=== PATIENT | female | born 1990 | race Two or more races ===

== ENCOUNTER 2017-05-06 12:08 | Emergency (ER) | payer OTHER ==
[2017-05-06 12:12] VITALS: BMI 19.5
--- NOTE | 2017-05-06 13:12 | PDOC ---
History of Present Illness - General Chief Complaint: Vaginal Bleeding Stated Complaint: VAGINAL BLEEDING Time Seen by Provider: 05/06/17 12:58 History Source: Patient Exam Limitations: No Limitations - History of Present Illness Initial Comments: CHIEF COMPLAINT: 26 y/o afebrile female, , approximately 7 week female with LMP 03/16/17 c/o vaginal bleeding and lower abdominal pain x 5 days. HISTORY OF PRESENT ILLNESS: The patient states she started having vaginal bleeding of pink blood 5 days ago. She states the bleeding has continued and turned brown. She also admits to lower abdominal and back cramping. She saw her PCP, Dr. George, today, who sent her here for blood work and ultrasound. The patient denies f/c, n/v/d, CP, SOB, hematuria, dysuria. Vital signs on arrival are within normal limits. REVIEW OF SYSTEMS: GENERAL/CONSTITUTIONAL: No fever/chills. No weakness. No weight change. HEAD, EYES, EARS, NOSE AND THROAT: No change in vision. No ear pain or discharge. No sore throat. CARDIOVASCULAR: No chest pain or shortness of breath. RESPIRATORY: No cough, wheezing, or hemoptysis. GASTROINTESTINAL: +abd pain. No nausea, vomiting, diarrhea. GENITOURINARY: No dysuria, frequency, or change in urination. +vaginal bleeding. MUSCULOSKELETAL: No joint or muscle swelling or pain. No neck pain. +back pain. SKIN: No rash or easy bruising. NEUROLOGIC: No headache, vertigo, loss of consciousness, or loss of sensation. PHYSICAL EXAM: GENERAL: The patient is awake, alert, and fully oriented, in no acute distress. She is well appearing and ambulatory. HEAD: Normal with no signs of trauma. ENT: Pupils equal, round and reactive to light, extraocular movements intact, sclera anicteric, conjunctiva clear. Neck supple. LUNGS: Clear to auscultation bilaterally. Normal excursion. No respiratory distress or use of accessory muscles. CV: RRR, S1/S2, no MRG. Cap refill < 2 sec. ABDOMEN: Soft, non-distended, non-tender even to deep palpation, no hepatomegaly or splenomegaly, no masses. BACK: No CVA TTP b/l. VAGINAL: DEFERRED EXTREMITIES: Normal range of motion, no edema. NEUROLOGICAL: Normal speech, normal gait. CN II-XII grossly intact. PSYCH: Normal mood, normal affect. SKIN: Warm, dry, normal turgor, no rashes or lesions noted. Past History - Past Medical History Allergies/Adverse Reactions: Allergies Allergy/AdvReac Type Severity Reaction Status Date / Time No Known Allergies Allergy Verified 05/06/17 12:12 Home Medications: Ambulatory Orders NK [No Known Home Medication] 01/23/16 Asthma: No Cancer: No Cardiac Disorders: No Diabetes: No HTN: No Seizures: No Thyroid Disease: No - Psycho/Social/Smoking Cessation Hx Anxiety: No Suicidal Ideation: No Smoking History: Never smoked Have you smoked in the past 12 months: No Hx Alcohol Use: No Drug/Substance Use Hx: No Substance Use Type: None Hx Substance Use Treatment: No *Physical Exam - Vital Signs Last Vital Signs Temp Pulse Resp BP Pulse Ox 98.8 F 61 18 111/69 99 05/06/17 12:10 05/06/17 12:10 05/06/17 12:10 05/06/17 12:10 05/06/17 12:10 ED Treatment Course - LABORATORY CBC & Chemistry Diagram: 05/06/17 13:29 05/06/17 13:29 Medical Decision Making - Medical Decision Making A/P: 26 y/o female, approximately 7 weeks with 5 days of vaginal bleeding and abdominal pain. Plan is as follows: 1. Labs 2. UA/culture 3. Transvaginal Ultrasound Transvaginal Ultrasound IMPRESSION: Single live intrauterine with estimated gestational age of 5 weeks and 6 days. Note is made of a small subchorionic hemorrhage for which a follow up pelvis ultrasound is recommended. Blood type AB+ Gave the patient all of her results. She states she will call Dr. George today to schedule follow up appointment. Instructed her to bring a copy of her ultrasound performed today. Suggested she return to the ER with any worsening or concerning symptoms. The patient verbalizes understanding of all instructions, has no further questions and is awaiting discharge. *DC/Admit/Observation/Transfer Diagnosis at time of Disposition: Antepartum hemorrhage Qualifiers: Trimester: first trimester Qualified Code(s): O46.91 - Antepartum hemorrhage, unspecified, first trimester - Discharge Dispostion Disposition: HOME Condition at time of disposition: Good - Referrals Referrals: Emerita Lomeli MD [Staff Physician] - Call tomorrow - Patient Instructions Printed Discharge Instructions: DI for Vaginal Bleeding During Additional Instructions: Discharge Instructions: -Please call Dr. Lomeli today or tomorrow to schedule a follow up appointment and ultrasound for next week -Your ultrasound showed single gestation at 5 weeks 6 days with heart rate of 115bpm -Your beta hcg was 33,000 -Return to the ER with any worsening or concerning symptoms
[2017-05-06 13:47] LABS: BASOPHIL 0.7 % (0-2.0); EOSINOPHIL 0.3 % (0-4.5); MCH 30.7 pg (25.7-33.7); MCHC 33.4 g/dl (32.0-36.0); MEAN CELL VOLUME 91.7 fl (80-96); NEUTROPHILS 53.2 % (42.8-82.8); PLATELET COUNT 201 K/MM3 (134-434); WHITE BLOOD COUNT 5.6 K/mm3 (4.0-10.0)
[2017-05-06 14:16] LABS: ALBUMIN 3.8 g/dl (3.4-5.0); ANION GAP 7 (8-16); CALCIUM 8.9 mg/dL (8.5-10.1); CO2 27 mmol/L (21-32); GLUCOSE,RANDOM 68 mg/dL (74-106)
[2017-05-06 14:26] LABS: URINE APPEARANCE CLEAR; URINE BILIRUBIN NEGATIVE (NEGATIVE); URINE BLOOD NEGATIVE (NEGATIVE); URINE COLOR YELLOW; URINE GLUCOSE (UA) NEGATIVE (NEGATIVE); URINE KETONE TRACE (NEGATIVE); URINE LEUK ESTERASE NEGATIVE (NEGATIVE); URINE NITRITE NEGATIVE (NEGATIVE); URINE PROTEIN NEGATIVE (NEGATIVE); URINE UROBILINOGEN NEGATIVE mg/dL (0.2-1.0)
[2017-05-06 14:34] LABS: ALK PHOS 38 U/L (45-117); BILIRUBIN,TOTAL 0.8 mg/dL (0.2-1.0); CREATININE 0.6 mg/dL (0.55-1.02); SGPT/ALT 15 U/L (12-78); TOT PROT 7.3 g/dl (6.4-8.2)
[2017-05-06 14:35] LABS: SGOT/AST 19 U/L (15-37)
[2017-05-06 15:56] VITALS: BP 110/65; PULSE 78; TEMP 97.2
== END 2017-05-06 15:55 | disposition home or self-care (01) ==
LOC: JER 12:08
DX: O26.891 Other specified pregnancy related conditions, first trimester (principal); Z3A.01 Less than 8 weeks gestation of pregnancy; O46.91 Antepartum hemorrhage, unspecified, first trimester
CPT/HCPCS: 36415; 76817-TC; 76856-TC; 80053; 81003; 84702; 84703; 85025; 86850; 86900; 86901; 87086; 99284-25

== ENCOUNTER 2017-12-22 06:30 | Inpatient (IN) | payer OTHER ==
[2017-12-22] MEDS ORDERED: ELECTROLYTE-148 SOLN 1,000 ML IV SCH (06:45)
[2017-12-22 07:43] VITALS: BMI 21.6
[2017-12-22] MEDS: ELECTROLYTE-148 SOLN 1,000 ML IV SCH (08:00)
[2017-12-22] MEDS ORDERED: CITRIC ACID/SODIUM CITRATE 30 ML UNIT-DOSE CUP PO ONE (08:11)
[2017-12-22] MEDS ORDERED: morphine SULFATE/Preservative Free 0.5 MG/ML (1cc Syringe) ONE (08:14)
[2017-12-22] MEDS ORDERED: ceFAZolin SODIUM 1 GM VIAL ONE (08:17)
--- NOTE | 2017-12-22 08:17 | HP ---
Past Medical History - Admission Chief Complaint: Elective History of Present Illness: 27 yo @ 39 weeks gestation, is pre op for repeat . History Source: Patient Limitations to Obtaining History: No Limitations - Past Medical History ...: 2 ...Para: 1 ...Term: 1 ...: 0 ...Spon : 0 ...Induced : 0 ...Multiple Gestation: 0 ...EDC by Sono: 12/29/17 - Past Surgical History Past Surgical History: Yes: Hx Myomectomy: No Hx Transabdominal Cerclage: No - Smoking History Smoking history: Never smoked Have you smoked in the past 12 months: No - Alcohol/Substance Use Hx Alcohol Use: No History of Substance Use: reports: None - Social History Usual Living Arrangement: Yes: With Spouse History of Recent Travel: No Home Medications - Allergies Allergies/Adverse Reactions: Allergies Allergy/AdvReac Type Severity Reaction Status Date / Time No Known Allergies Allergy Verified 12/22/17 07:27 - Home Medications Home Medications: Ambulatory Orders Vit/Iron Fum/Folic AC [ Tablet] 1 each PO DAILY 12/22/17 Family Disease History - Family Disease History Family History: Unremarkable Review of Systems - Review of Systems Constitutional: reports: No Symptoms Eyes: reports: No Symptoms HENT: reports: No Symptoms Neck: reports: No Symptoms Cardiovascular: reports: No Symptoms Respiratory: reports: No Symptoms Gastrointestinal: reports: No Symptoms Genitourinary: reports: No Symptoms Breasts: reports: No Symptoms Reported Musculoskeletal: reports: No Symptoms Integumentary: reports: No Symptoms Neurological: reports: No Symptoms Endocrine: reports: No Symptoms Hematology/Lymphatic: reports: No Symptoms Psychiatric: reports: No Symptoms Pain Intensity: 0 Physical Exam - Maternity Vital Signs: Vital Signs Temperature 97.8 F 12/22/17 07:30 Pulse Rate 95 H 12/22/17 07:30 Respiratory Rate 18 12/22/17 07:30 Blood Pressure 121/56 12/22/17 07:30 O2 Sat by Pulse Oximetry (%) Constitutional: Yes: Well Nourished Eyes: Yes: Conjunctiva Clear HENT: Yes: Atraumatic Neck: Yes: Supple Cardiovascular: Yes: Regular Rate and Rhythm Lungs: Clear to auscultation Breast(s): Yes: WNL - Abdominal Exam/OB Number of Fetuses: Single Presentation: Vertex - Vaginal Exam/OB Vaginal Bleediing: No - Physical Exam Musculoskeletal: Yes: WNL Extremities: Yes: WNL ...Motor Strength: WNL Psychiatric: Yes: Alert, Oriented Problem List - Problems (1) Previous section complicating , antepartum condition or complication Code(s): O34.219 - MATERNAL CARE FOR UNSP TYPE SCAR FROM PREVIOUS DEL Assessment/Plan IUP @ 39 weeks Previous Pre op for repeat Consent signed Anesthesia to see patient
[2017-12-22] MEDS ORDERED: morphine SULFATE/Preservative Free 0.5 MG/ML (1cc Syringe) SPIN ONE (08:32)
[2017-12-22] MEDS ORDERED: ONDANSETRON 4 MG/2 ML VIAL IVPUSH PRN (08:36)
[2017-12-22] MEDS ORDERED: IBUPROFEN 600 MG TABLET (FP) PO PRN (08:36)
[2017-12-22] MEDS ORDERED: PHENYLEPHRINE HCL 10 MG/1 ML SINGLE DOSE VIAL ONE (08:39)
[2017-12-22] MEDS ORDERED: OXYTOCIN 10 UNITS/ML VIAL ONE (08:45)
[2017-12-22] MEDS ORDERED: OXYTOCIN 20 UNITS in 0.9% NS 40 UNIT/2,000 ML INFUS.BAG IV ONE (09:09)
[2017-12-22] MEDS ORDERED: METHYLERGONOVINE MALEATE 0.2 MG/1 ML AMP IM PRN (09:20)
--- NOTE | 2017-12-22 09:24 | OP ---
Operative Note - Note: Operative Date: 12/22/17 Pre-Operative Diagnosis: Elective Operation: Repeat Low Transverse Findings: Baby boy in ROT position Surgeon: Emerita Lomeli Order Takers Supervisor: Matt Luz Anesthesiologist/REVISING CLERK: Jaden Diaz Anesthesia: Spinal Specimens Removed: Placenta Estimated Blood Loss (mls): 600
[2017-12-22] MEDS ORDERED: OXYTOCIN 20 UNITS in 0.9% NS 20 UNIT/1,000 ML INFUS.BAG IV SCH (09:30)
[2017-12-22] MEDS: SIMETHICONE 80 MG TAB.CHEW (FP) PO PRN (19:42)
[2017-12-22] MEDS: ACETAMINOPHEN 325 MG TABLET (FP) PO PRN (19:43)
[2017-12-22] MEDS: IBUPROFEN 600 MG TABLET (FP) PO PRN (19:43)
[2017-12-22] MEDS: FERROUS SO4 325 MG TABLET (FP) PO SCH (22:08)
[2017-12-23] MEDS: SIMETHICONE 80 MG TAB.CHEW (FP) PO PRN ×6 (01:31→23:16)
[2017-12-23] MEDS: ACETAMINOPHEN 325 MG TABLET (FP) PO PRN ×5 (01:39→18:59)
[2017-12-23] MEDS: IBUPROFEN 600 MG TABLET (FP) PO PRN ×6 (01:39→23:16)
--- NOTE | 2017-12-23 07:07 | PN ---
Progress Note (SOAP) - Subjective Chief Complaint: Pt doing well - Current Medications Current Medications: Active Medications Acetaminophen (Tylenol -) 650 mg PO Q4H PRN PRN Reason: PAIN Last Admin: 12/23/17 06:16 Dose: 650 mg Bisacodyl (Dulcolax Suppository -) 10 mg RC PRN PRN PRN Reason: CONSTIPATION Diphenhydramine HCl (Benadryl Injection -) 25 mg IVPUSH Q4H PRN PRN Reason: Pruritis Last Admin: 12/22/17 11:27 Dose: 25 mg Ferrous Sulfate (Feosol -) 325 mg PO BID DAYANA Last Admin: 12/22/17 22:08 Dose: Not Given Parenteral Electrolytes (Plasma-Lyte 148 -) 1,000 mls @ 125 mls/hr IV ASDIR [facility] Last Admin: 12/22/17 08:00 Dose: 125 mls/hr Oxytocin/Sodium Chloride (Normal Saline+20 Units Oxytocin -) 20 unit in 1,000 mls @ 125 mls/hr IV ASDIR [facility] Ibuprofen (Motrin -) 600 mg PO Q4H PRN PRN Reason: PAIN LEVEL 1 - 3 Last Admin: 12/23/17 06:16 Dose: 600 mg Methylergonovine Maleate (Methergine Injection -) 0.2 mg IM Q4H PRN PRN Reason: Excessive Bleeding (L&D) Ondansetron HCl (Zofran Injection) 4 mg IVPUSH Q4H PRN PRN Reason: NAUSEA Oxycodone HCl (Roxicodone -) 5 mg PO Q4H PRN PRN Reason: PAIN LEVEL 4 - 6 Multivit/Folic Acid/Iron ( Vitamins (Sjr) -) 1 tab PO DAILY [facility] Simethicone (Mylicon -) 80 mg PO Q4H PRN PRN Reason: GAS Last Admin: 12/23/17 06:14 Dose: 80 mg - Objective Vital Signs: Vital Signs Temperature 98.2 F 12/23/17 04:00 Pulse Rate 80 12/23/17 04:00 Respiratory Rate 18 12/23/17 06:00 Blood Pressure 86/45 12/23/17 04:00 O2 Sat by Pulse Oximetry (%) 100 12/22/17 10:59 Constitutional: Yes: Well Nourished, No Distress
[2017-12-23 08:02] LABS: BASO % 0.1 % (0-2.0); EOS % 0.1 % (0-4.5); HEMATOCRIT 30.4 % (32.4-45.2); HEMOGLOBIN 10.6 GM/dL (10.7-15.3); LYMPH % 11.5 % (8-40); MCH 33.3 pg (25.7-33.7); MCHC 34.8 g/dl (32.0-36.0); MEAN CELL VOLUME 95.5 fl (80-96); MEAN PLT VOLUME 9.2 fl (7.5-11.1); MONO % 6.9 % (3.8-10.2); NEUT % 81.4 % (42.8-82.8); PLATELET COUNT 126 K/MM3 (134-434); RBC 3.18 M/mm3 (3.60-5.2); RDW 12.7 % (11.6-15.6); WHITE BLOOD COUNT 8.2 K/mm3 (4.0-10.0)
--- NOTE | 2017-12-23 08:20 | PN ---
Progress Note, Physician Chief Complaint: s/p c section under spinal anesthesia History of Present Illness: post op day one with duramorph for post op pain control - Current Medication List Current Medications: Active Medications Acetaminophen (Tylenol -) 650 mg PO Q4H PRN PRN Reason: PAIN Last Admin: 12/23/17 06:16 Dose: 650 mg Bisacodyl (Dulcolax Suppository -) 10 mg RC PRN PRN PRN Reason: CONSTIPATION Diphenhydramine HCl (Benadryl Injection -) 25 mg IVPUSH Q4H PRN PRN Reason: Pruritis Last Admin: 12/22/17 11:27 Dose: 25 mg Ferrous Sulfate (Feosol -) 325 mg PO BID DAYANA Last Admin: 12/22/17 22:08 Dose: Not Given Parenteral Electrolytes (Plasma-Lyte 148 -) 1,000 mls @ 125 mls/hr IV ASDIR [facility] Last Admin: 12/22/17 08:00 Dose: 125 mls/hr Oxytocin/Sodium Chloride (Normal Saline+20 Units Oxytocin -) 20 unit in 1,000 mls @ 125 mls/hr IV ASDIR [facility] Ibuprofen (Motrin -) 600 mg PO Q4H PRN PRN Reason: PAIN LEVEL 1 - 3 Last Admin: 12/23/17 06:16 Dose: 600 mg Methylergonovine Maleate (Methergine Injection -) 0.2 mg IM Q4H PRN PRN Reason: Excessive Bleeding (L&D) Ondansetron HCl (Zofran Injection) 4 mg IVPUSH Q4H PRN PRN Reason: NAUSEA Oxycodone HCl (Roxicodone -) 5 mg PO Q4H PRN PRN Reason: PAIN LEVEL 4 - 6 Multivit/Folic Acid/Iron ( Vitamins (Sjr) -) 1 tab PO DAILY [facility] Simethicone (Mylicon -) 80 mg PO Q4H PRN PRN Reason: GAS Last Admin: 12/23/17 06:14 Dose: 80 mg - Objective Vital Signs: Vital Signs Temperature 98.2 F 12/23/17 04:00 Pulse Rate 80 12/23/17 04:00 Respiratory Rate 18 12/23/17 06:00 Blood Pressure 86/45 12/23/17 04:00 O2 Sat by Pulse Oximetry (%) 100 12/22/17 10:59 Constitutional: Yes: Well Nourished Cardiovascular: Yes: WNL Respiratory: Yes: WNL Gastrointestinal: Yes: WNL Labs: CBC, BMP 12/23/17 06:00 Assessment/Plan No adverse effect from anesthetic, no headache, pain controlled, dept of anesthesia will sign off care at this time
[2017-12-23] MEDS ORDERED: BISACODYL 10 MG SUPP.RECT RC PRN (09:20)
[2017-12-23] MEDS: PRENATAL VITAMINS W/ FOLIC ACID TABLET (FP) PO SCH (10:00)
[2017-12-23] MEDS: FERROUS SO4 325 MG TABLET (FP) PO SCH ×2 (10:00→22:00)
--- NOTE | 2017-12-23 12:35 | PATH ---
Surgical Pathology Report Patient Name: LARISA CHICAS [facility]. Rec. 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 Specimen(s) Received PLACENTA Clinical History , history of positive quantiferon, anemia 2014 Final Diagnosis PLACENTA, SECTION: 481 g THIRD TRIMESTER PLACENTA WITH TRIVASCULAR UMBILICAL CORD AND UNREMARKABLE PLACENTAL MEMBRANES. Electronically Signed Savannah Patten M.D. Gross Description The specimen is received fresh labeled placenta and is a 481 gram, 20.0 x 17.0 x 2.0 cm. placenta with attached membranes and umbilical cord. The attached membranes are barnard, translucent with focal opacities and insert marginally. The umbilical cord measures 43 cm. in length and averages 1.3 cm. in diameter. The cord inserts eccentrically, 6 cm. to the nearest margin. No true knots or strictures are identified. Cut surface of the umbilical cord reveals 3 vessels. The surface is xiao blue with moderate fibrin deposition and appropriate caliber vessels. The maternal surface is red-brown with focal defects. Sectioning reveals red-brown, spongy parenchyma. No lesions are identified. Drum Saw Operator sections are submitted in three cassettes as follows: 1- membrane rolls and umbilical cord; 2-3- full thickness sections of placenta. /12/22/2017 saudi12/22/2017
[2017-12-23] MEDS: ELECTROLYTE-148 SOLN 1,000 ML IV SCH (14:20)
[2017-12-23] MEDS: oxyCODONE HCL 5 MG TABLET PO PRN (23:18)
[2017-12-24] MEDS: SIMETHICONE 80 MG TAB.CHEW (FP) PO PRN ×3 (07:43→20:14)
[2017-12-24] MEDS: IBUPROFEN 600 MG TABLET (FP) PO PRN ×3 (07:43→20:14)
[2017-12-24] MEDS: ACETAMINOPHEN 325 MG TABLET (FP) PO PRN ×2 (07:44→14:54)
--- NOTE | 2017-12-24 08:18 | PN ---
Post Progress Note - Subjective Subjective: 27 yo Para 2 status post repeat , seen and evaluated. She c/o shoulder pain. Post Day: 2 Type of Delivery: Repeat C/S Vital Signs: Vital Signs Temperature 98.3 F 12/23/17 22:00 Pulse Rate 84 12/23/17 22:00 Respiratory Rate 20 12/23/17 22:00 Blood Pressure 100/57 12/23/17 22:00 O2 Sat by Pulse Oximetry (%) 100 12/22/17 10:59 Breast Exam: Yes: Soft Uterus: Yes: Fundus Firm Incision: Yes: Aidee intact, Other (Dressing removed) Abdomen/GI: Yes: Abdomen soft, Tolerating PO Lochia: Yes: Rubra Lochia, amount: Small Extremities: Yes: Calves non-tender Perineum: Yes: Intact Activity: Ambulating - Labs Labs: CBC WBC 8.2 K/mm3 (4.0-10.0) D 12/23/17 06:00 RBC 3.18 M/mm3 (3.60-5.2) L D 12/23/17 06:00 Hgb 10.6 GM/dL (10.7-15.3) L D 12/23/17 06:00 Hct 30.4 % (32.4-45.2) L D 12/23/17 06:00 MCV 95.5 fl (80-96) 12/23/17 06:00 MCH 33.3 pg (25.7-33.7) 12/23/17 06:00 MCHC 34.8 g/dl (32.0-36.0) 12/23/17 06:00 RDW 12.7 % (11.6-15.6) 12/23/17 06:00 Plt Count 126 K/MM3 (134-434) L 12/23/17 06:00 MPV 9.2 fl (7.5-11.1) 12/23/17 06:00 Neutrophils % 81.4 % (42.8-82.8) 12/23/17 06:00 Lymphocytes % 11.5 % (8-40) D 12/23/17 06:00 Monocytes % 6.9 % (3.8-10.2) 12/23/17 06:00 Eosinophils % 0.1 % (0-4.5) D 12/23/17 06:00 Basophils % 0.1 % (0-2.0) 12/23/17 06:00 Problem List - Problems (1) Previous section complicating , antepartum condition or complication Code(s): O34.219 - MATERNAL CARE FOR UNSP TYPE SCAR FROM PREVIOUS DEL Assessment/Plan Status post repeat Shoulder pain Analgesia as needed Continue post op care
--- NOTE | 2017-12-24 08:21 | DS ---
Physical Exam-RN FORENSIC Vital Signs: Vital Signs Temperature 98.3 F 12/23/17 22:00 Pulse Rate 84 12/23/17 22:00 Respiratory Rate 20 12/23/17 22:00 Blood Pressure 100/57 12/23/17 22:00 O2 Sat by Pulse Oximetry (%) 100 12/22/17 10:59 Constitutional: Yes: Well Nourished Eyes: Yes: Conjunctiva Clear HENT: Yes: Atraumatic Neck: Yes: Supple Cardiovascular: Yes: Regular Rate and Rhythm Respiratory: Yes: Regular Gastrointestinal: Yes: Normal Bowel Sounds Pelvis: Yes: WNL External Genitalia: Yes: Normal Vaginal Exam: Yes: Normal Cervix: Yes: Normal Uterus: Yes: Firm Wound/Incision: Yes: Well Approximated, Steri Strips (in place). 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 Present: No Gender: Female Weight: 7 lb 8 oz Position: Right, OT Total Hours ROM (Hrs/Mins): 0/2 - 1 Minute Total Score: 9 5 Minutes Total Score: 9 - [place] Feeding Plan Initial Plan: Exclusive throughout hospitalization Discharge Summary Reason For Visit: SCHEDULED C/S Current Active Problems Previous section complicating , antepartum condition or complication (Acute) Procedures: Principal: Repeat Hospital Course: Routine post op care Condition: Good - Instructions Diet, Activity, Other Instructions: Regular diet No driving, no lifting x 4 weeks F/U with MD in 1 week Disposition: HOME - Home Medications Comprehensive Discharge Medication List: Ambulatory Orders Vit/Iron Fum/Folic AC [ Tablet] 1 each PO DAILY 12/22/17
[2017-12-24] MEDS: PRENATAL VITAMINS W/ FOLIC ACID TABLET (FP) PO SCH (09:24)
[2017-12-24] MEDS: FERROUS SO4 325 MG TABLET (FP) PO SCH ×2 (09:24→22:00)
[2017-12-24] MEDS: oxyCODONE HCL 5 MG TABLET PO PRN (20:14)
[2017-12-24 20:19] VITALS: TEMP 98.5
[2017-12-25] MEDS: SIMETHICONE 80 MG TAB.CHEW (FP) PO PRN (07:45)
[2017-12-25] MEDS: IBUPROFEN 600 MG TABLET (FP) PO PRN (07:45)
[2017-12-25] MEDS: ACETAMINOPHEN 325 MG TABLET (FP) PO PRN (07:46)
[2017-12-25 08:35] LABS: BASO % 0.3 % (0-2.0); EOS % 1.5 % (0-4.5); HEMATOCRIT 30.7 % (32.4-45.2); HEMOGLOBIN 10.6 GM/dL (10.7-15.3); MCH 32.9 pg (25.7-33.7); MCHC 34.6 g/dl (32.0-36.0); MEAN PLT VOLUME 9.1 fl (7.5-11.1); MONO % 6.9 % (3.8-10.2); NEUT % 61.3 % (42.8-82.8); PLATELET COUNT 177 K/MM3 (134-434); RBC 3.23 M/mm3 (3.60-5.2); RDW 13.1 % (11.6-15.6); WHITE BLOOD COUNT 5.6 K/mm3 (4.0-10.0)
[2017-12-25] MEDS: PRENATAL VITAMINS W/ FOLIC ACID TABLET (FP) PO SCH (12:20)
[2017-12-25] MEDS: FERROUS SO4 325 MG TABLET (FP) PO SCH (12:20)
[2017-12-25 13:28] VITALS: BP 101/60; PULSE 81
== END 2017-12-25 11:45 | disposition home or self-care (01) | DRG 540 ==
LOC: JLDR 06:30 → J3W 11:17
PROVIDERS: ADMIT Obstetrics & Gynecology; ATTEND Obstetrics & Gynecology
PROC: 10D00Z1 Extraction of Products of Conception, Low, Open Approach (ICD-10-PCS; principal; 2017-12-22)
DX: O34.211 Maternal care for low transverse scar from previous cesarean delivery (principal); O90.89 Other complications of the puerperium, not elsewhere classified; M25.519 Pain in unspecified shoulder; Z3A.39 39 weeks gestation of pregnancy; Z37.0 Single live birth
CPT/HCPCS: 36415; 71046-TC-FY; 85025; 88307-TC